=== PATIENT | female | born 1970 | race Caucasian/White ===

== ENCOUNTER 2017-02-16 18:35 | Emergency (ER) | payer OTHER ==
[~2017-02-16] VITALS: Ht 170.2 cm; Wt 86.2 kg
[2017-02-16] MEDS ORDERED: ONDANSETRON 4 MG TAB.RAPDIS ONE (19:00)
[2017-02-16] MEDS ORDERED: MORPHINE SULFATE INJ 4 MG/ML DISP.SYRIN ONE (19:00)
[2017-02-16] MEDS: MORPHINE SULFATE INJ 2 MG/ML DISP.SYRIN IM ONE (19:10)
[2017-02-16] MEDS: ONDANSETRON 4 MG TAB.RAPDIS SL ONE (19:12)
[2017-02-16] MEDS ORDERED: HYDROMORPHONE 1 MG/1 ML DISP.SYRIN ONE (21:09)
[2017-02-16] MEDS: HYDROMORPHONE 1 MG/1 ML DISP.SYRIN IM ONE (21:16)
[2017-02-16 21:55] VITALS: BP 144/76
== END 2017-02-16 22:11 | disposition home or self-care (01) ==
LOC: ER 18:37
DX: M54.5 Low back pain (principal); G89.29 Other chronic pain; F17.210 Nicotine dependence, cigarettes, uncomplicated; I10 Essential (primary) hypertension; Z98.890 Other specified postprocedural states
CPT/HCPCS: 36415; 72100-TC; 84703-TC; A4606; J1170; J2270; Q0162; Z7610

== ENCOUNTER 2020-12-23 17:47 | Emergency (ER) | payer OTHER ==
[~2020-12-23] VITALS: Ht 162.6 cm; Wt 90.7 kg
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
[2020-12-23] MEDS ORDERED: IBUP-1957 PO (20:16)
[2020-12-23] MEDS ORDERED: CYCL10TA9 PO (20:16)
--- NOTE | 2020-12-23 20:20 | NUR ---
Patient discharged to home in stable condition. Written and verbal after care instructions given. Patient verbalizes understanding of instruction.Ms. Carranza ambulatory with a steady gait accompanied by her
[2020-12-23 20:21] VITALS: BP 148/97
== END 2020-12-23 20:12 | disposition home or self-care (01) ==
LOC: ER 17:47
DX: S13.4XXA Sprain of ligaments of cervical spine, initial encounter (principal); S39.012A Strain of muscle, fascia and tendon of lower back, initial encounter; S20.214A Contusion of middle front wall of thorax, initial encounter; I10 Essential (primary) hypertension; M54.9 Dorsalgia, unspecified; G89.29 Other chronic pain; F10.10 Alcohol abuse, uncomplicated; F17.200 Nicotine dependence, unspecified, uncomplicated; Y90.9 Presence of alcohol in blood, level not specified; Z98.890 Other specified postprocedural states; Z79.899 Other long term (current) drug therapy; V49.49XA Driver injured in collision with other motor vehicles in traffic accident, initial encounter; Y93.89 Activity, other specified; Y92.488 Other paved roadways as the place of occurrence of the external cause; Y99.8 Other external cause status
CPT/HCPCS: 71111-TC; 71120-TC; 72100-TC